=== PATIENT | female | born 1995 | race Caucasian/White ===

== ENCOUNTER 2024-12-29 12:50 | Emergency (ER) | payer OTHER, MEDICAID ==
[2024-12-29 13:08] VITALS: BP 110/73; PULSE 86
[2024-12-29] MEDS: Bacitracin Oint 1 GM U/D Packet TOP ONE (13:40)
== END 2024-12-29 13:50 | disposition home or self-care (01) ==
LOC: LL.ED 12:50
DX: S91.051A Open bite, right ankle, initial encounter (principal); Z79.899 Other long term (current) drug therapy; Z88.8 Allergy status to other drugs, medicaments and biological substances; Z91.018 Allergy to other foods; W64.XXXA Exposure to other animate mechanical forces, initial encounter
CPT/HCPCS: 99283